=== PATIENT | female | born 1990 | race Caucasian/White ===

== ENCOUNTER 2017-08-28 10:17 | Emergency (ER) | payer OTHER ==
[2017-08-28 10:33] VITALS: O2SAT 100
--- NOTE | 2017-08-28 11:10 | C.PDOC ---
History Of Present Illness 27 year old female, A2, 5 miscarriages, denieshxof ectopic, presents to ED for evaluation of gradual development of vaginal spotting for the past 2 weeks. Patient notes that vaginal bleeding was heavier today, states she felt a gush of blood running down her legs which prompted ED visit. Pt reports associated diffuse lower abdominal pain. Otherwise, pt denies fever, chills, headache, dizziness, weakness, vomiting, diarrhea, back pain, dysuria, urinary frequency, vaginal discharge. Pt admits, "had initial OB visit 1 week ago when notified doctor about vaginal potting and was told its normal". Ambulate to Ed for evaluation, not in any apparent distress. Time Seen by Provider: 08/28/17 10:27 Chief Complaint (Nursing): Female Genitourinary History Per: Patient History/Exam Limitations: no limitations Onset/Duration Of Symptoms: Days (2 weeks) Current Symptoms Are (Timing): Still Present Quality Of Discomfort: "Pain" Associated Symptoms: denies: Fever, Chills, Vomiting, Diarrhea, Loss Of Appetite , Back Pain, Chest Pain, Constipation, Urinary Symptoms Alleviating Factors: None Recent travel outside of the [place]: No Additional History Per: Patient : 8 Para: 0 Miscarriage: 5 Past Medical History Reviewed: Historical Data, Nursing Documentation, Vital Signs Vital Signs: Last Vital Signs Temp 98.1 F 08/28/17 10:29 Pulse 90 08/28/17 10:29 Resp 16 08/28/17 10:29 BP 119/70 08/28/17 10:29 Pulse Ox 100 08/28/17 12:02 Surgical History: Tonsillectomy Family History: States: No Known Family Hx - Social History Hx Alcohol Use: No Hx Substance Use: No - Immunization History Hx Tetanus Toxoid Vaccination: No Hx Influenza Vaccination: No Hx Pneumococcal Vaccination: No Review Of Systems Except As Marked, All Systems Reviewed And Found Negative. Constitutional: Negative for: Fever, Chills Cardiovascular: Negative for: Chest Pain, Palpitations, Light Headedness Respiratory: Negative for: Cough, Shortness of Breath, Wheezing Gastrointestinal: Positive for: Abdominal Pain. Negative for: Nausea, Vomiting , Diarrhea, Constipation Genitourinary: Positive for: Vaginal Bleeding. Negative for: Dysuria, Frequency , Hematuria, Vaginal Discharge Musculoskeletal: Negative for: Back Pain Skin: Negative for: Rash, Bruising Neurological: Negative for: Headache, Dizziness Physical Exam - Physical Exam Appears: Well, Non-toxic, No Acute Distress Skin: Normal Color, Warm, Dry, No Rash Head: Normacephalic Eye(s): bilateral: PERRL Nose: Normal Oral Mucosa: Moist Throat: No Erythema Neck: Trachea Midline, Supple Chest: Symmetrical Cardiovascular: Rhythm Regular, No Murmur Respiratory: No Accessory Muscle Use, No Rales, No Rhonchi, No Wheezing Gastrointestinal/Abdominal: Soft, Tenderness (mild suprapubic), No Guarding, No Rebound Back: No CVA Tenderness Extremity: Normal ROM, No Pedal Edema, No Deformity, No Swelling Neurological/Psych: Oriented x3, Normal Speech, Normal Cognition ED Course And Treatment - Laboratory Results Result Diagrams: 08/28/17 11:10 O2 Sat by Pulse Oximetry: 100 (RA) Pulse Ox Interpretation: Normal Progress Note: Blood work, UA, transvaginal ultrasound ordered and reviewed. On re-eval, pt is afebrile, hemodynamicaly stable. NOn-toxic. AMbulatory in ED with stable gait. ENT: no acute findings. neck: SUpple, (-) JVD. Lungs: CTA B/L, BS equal B/L. ABd: benign, (-) guaridng, (-) rebound. Back: (-) CVA tenderness. US results review: 5w5d, appears small for age small sac with YS. FP seen in uterus. No FH. Beta quat 2974. Blood type: A positive. Pt has clinical findings c/w theratened . Pt advised and ref. to F/U with OB in 1-2 days for re-eavluation or return to ED in 2 days to repeat beta quant. Pt understand, stable for discharge now. Disposition Counseled Patient/Family Regarding: Diagnosis, Need For Followup - Disposition [facility] Disposition: HOME/ ROUTINE Disposition Time: 12:01 Condition: STABLE Additional Instructions: PELVIC REST FOR 1WEEK, AVOID SEXUAL ACTIVITY FOR 1 WEEK FOLLOW UP WITH OB IN 1-2 DAYS FOR RE-EVALUATION. IF UNABLE TO SEE YOUR OIL PROGRAM COMPLIANCE SPECIALIST, RETURN TO ED IN 2 DAYS TO REPEAT BETA QUANT ( ENZYMES) RETURN TO ED AT ANY TIME IF ANY WORSENING OR NEW CHANGES. Instructions: Threatened Miscarriage (ED) Forms: [employer] (Nicaraguan) - Clinical Impression Clinical Impression: Threatened - PA / [employer]URAL MAIL [employer]OR / Resident Statement MD/DO has reviewed & agrees with the documentation as recorded. - Scribe Statement The provider has reviewed the documentation as recorded by the Scribe Andrei Little All medical record entries made by the [facility] were at my direction and personally dictated by me. I have reviewed the chart and agree that the record accurately reflects my personal performance of the history, physical exam, medical decision making, and the department course for this patient. I have also personally directed, reviewed, and agree with the discharge instructions and disposition.
[2017-08-28 11:16] LABS: BASO % 0.5 % (0.0-2.0); EOS # 0.1 K/uL (0.0-0.7); EOS % 1.9 % (0.0-4.0); HEMATOCRIT 42.1 % (34.0-47.0); LYMPH # 1.4 K/uL (1.0-4.3); LYMPH % 28.8 % (20.0-40.0); MEAN CELL VOLUME 87.2 fL (81.0-99.0); MEAN CORPUSCULAR HEMOGLOBIN 29.4 pg (27.0-31.0); MEAN CORPUSCULAR HGB CONC 33.7 g/dL (33.0-37.0); MEAN PLATELET VOLUME 8.5 fL (7.2-11.7); MONO # 0.5 K/uL (0.0-0.8); MONO % 10.9 % (0.0-10.0); NRBC % 0.1 % (0.0-2.0); RED CELL DISTRIBUTION WIDTH 14.6 % (11.5-14.5)
[2017-08-28 12:31] VITALS: BP 121/81; PULSE 88; RESP 20; TEMP 98.6
--- NOTE | 2017-08-28 12:45 | US ---
PROCEDURE: OB Pelvic Ultrasound HISTORY: vaginal bleeding COMPARISON: None available. FINDINGS: UTERUS: Single Live intrauterine gestation. Yolk sac and pole are visualized. CRL equivalent to 0.20 cm corresponding to 5 weeks and 5 days of gestational age. Gestational sac diameter 0.62 cm. age (Ultrasound estimated): Date of delivery (Ultrasound estimated) : 04/25/2018 cardiac activity is not documented on the current examination. Mayela-gestational hemorrhage: None. Uterus measures 7.2 x 4.2 x 2.9 cm. No mass CERVIX: Long and closed. No cervical abnormality seen. RIGHT OVARY: Measures 2.9 x 2.7 x 2.7 cm. No mass. Normal flow. LEFT OVARY: Measures 2.4 x 1.4 x 2.2 cm. No mass. Normal flow. FREE FLUID: None. OTHER FINDINGS: None. IMPRESSION: Single intrauterine gestation with mean gestational age of 5 weeks and 5 days. Yolk sac and pole are visualized however no cardiac activity is documented on the current examination which may be related to early gestation. The estimated date of delivery by ultrasound is 04/25/2018. The ultrasound dates correspond with the clinical dates. Clinical correlation and follow-up is advised to confirm viability.
== END 2017-08-28 12:35 | disposition home or self-care (01) ==
LOC: C.ER 10:17
DX: O20.0 Threatened abortion (principal); Z3A.01 Less than 8 weeks gestation of pregnancy

== ENCOUNTER 2017-09-06 21:37 | Emergency (ER) | payer OTHER ==
[2017-09-06 21:54] VITALS: TEMP 97.5
[2017-09-06] MEDS ORDERED: Sodium Chloride 0.9% 1,000 ML IV ONE (23:06)
[2017-09-06 23:21] LABS: BASO % 0.2 % (0.0-2.0); EOS # 0.2 K/uL (0.0-0.7); EOS % 2.2 % (0.0-4.0); HEMOGLOBIN 14.3 g/dL (11.0-16.0); LYMPH % 26.9 % (20.0-40.0); MEAN CELL VOLUME 86.2 fL (81.0-99.0); MEAN CORPUSCULAR HEMOGLOBIN 29.3 pg (27.0-31.0); MEAN PLATELET VOLUME 9.3 fL (7.2-11.7); MONO # 0.6 K/uL (0.0-0.8); MONO % 8.4 % (0.0-10.0); NEUT # 4.7 K/uL (1.8-7.0); NEUT % 62.3 % (50.0-75.0); RBC 4.9 Mil/uL (3.80-5.20); RED CELL DISTRIBUTION WIDTH 14.3 % (11.5-14.5); WHITE BLOOD COUNT 7.6 K/uL (4.8-10.8)
[2017-09-06 23:27] LABS: HCG,QUALITATIVE URINE POSITIVE (NEGATIVE)
[2017-09-06 23:35] LABS: ALB/GLOB RATIO 1.1 (1.0-2.1); ALBUMIN 4.2 g/dL (3.5-5.0); ALT/SGPT 22 U/L (9-52); AST/SGOT 23 U/L (14-36); BLOOD UREA NITROGEN 16 mg/dL (7-17); GFR AFRICAN-AMERICAN > 60; GFR NON-AFRICAN AMERICAN > 60
[2017-09-06 23:38] LABS: SQUAMOUS EPITHIAL 1 /hpf (0-5); URINE BACTERIA RARE (<OCC); URINE BILIRUBIN NEGATIVE (NEGATIVE); URINE BLOOD 3+ (NEGATIVE); URINE CLARITY Hazy (Clear); URINE COLOR Yellow (YELLOW); URINE GLUCOSE (UA) NORMAL (Normal); URINE LEUKOCYTE ESTERASE NEG Leu/uL (Negative); URINE NITRATE NEGATIVE (NEGATIVE); URINE PROTEIN 1+ mg/dL (NEGATIVE); URINE UROBILINOGEN NORMAL mg/dL (0.2-1.0)
--- NOTE | 2017-09-07 00:36 | C.PDOC ---
Time Seen by Provider: 09/06/17 23:00 Chief Complaint (Nursing): Female Genitourinary History Per: Patient Onset/Duration Of Symptoms: Days Current Symptoms Are (Timing): Worse Severity: Moderate Location Of Pain/Discomfort: Suprapubic Quality Of Discomfort: Cramping Exacerbating Factors: None Alleviating Factors: None Additional History Per: Prior Records Abnormal Vaginal Bleeding: Yes Past Medical History Reviewed: Historical Data, Nursing Documentation, Vital Signs Vital Signs: Last Vital Signs Temp 97.5 F L 09/06/17 21:47 Pulse 70 09/06/17 23:46 Resp 16 09/06/17 23:46 BP 149/63 09/06/17 23:46 Pulse Ox 98 09/07/17 00:40 - Medical History PMH: No Chronic Diseases Other PMH: Pt is 6 weeks Surgical History: Tonsillectomy Family History: States: Unknown Family Hx - Social History Hx Tobacco Use: No Hx Alcohol Use: No Hx Substance Use: No - Immunization History Hx Tetanus Toxoid Vaccination: No Hx Influenza Vaccination: No Hx Pneumococcal Vaccination: No Review Of Systems Except As Marked, All Systems Reviewed And Found Negative. Constitutional: Negative for: Fever Cardiovascular: Negative for: Chest Pain Respiratory: Negative for: Shortness of Breath Gastrointestinal: Negative for: Vomiting Genitourinary: Positive for: Vaginal Bleeding, Pelvic Pain. Negative for: Dysuria Musculoskeletal: Positive for: Back Pain. Negative for: Neck Pain Skin: Negative for: Rash Neurological: Negative for: Weakness, Numbness Physical Exam - Physical Exam Appears: Non-toxic, No Acute Distress Skin: Normal Color, Warm, Dry, No Rash Head: Atraumatic, Normacephalic Eye(s): bilateral: PERRL, EOMI Neck: Normal ROM, Supple Cardiovascular: Rhythm Regular Respiratory: Normal Breath Sounds, No Accessory Muscle Use Gastrointestinal/Abdominal: Soft, Tenderness (suprapubic), No Guarding, No Rebound Back: No CVA Tenderness Extremity: Normal ROM Neurological/Psych: Oriented x3, Normal Motor, Normal Sensation ED Course And Treatment - Laboratory Results Result Diagrams: 09/06/17 23:18 09/06/17 23:18 Urine POC: Positive O2 Sat by Pulse Oximetry: 98 Pulse Ox Interpretation: Normal - Physician Consult Information Physician Contacted: Dominic Myers ([employer]) Outcome Of Conversation: She requested a pelvic US. Disposition - Disposition Disposition Time: 00:47 Condition: FAIR - Clinical Impression Clinical Impression: First trimester bleeding Physician Patient Turnover Patient Signed Over To: Sybil Craig Handoff Comments: to f/up Pelvic US.
[2017-09-07 01:41] VITALS: O2SAT 100
--- NOTE | 2017-09-07 01:43 | US ---
EXAM: US , Transvaginal CLINICAL HISTORY: 27 years old, female; Signs and symptoms; Lmp or gestational age (in weeks): 07/16/17; Antepartum complications; Bleeding; ; Additional info: Vaginal bleeding. TECHNIQUE: Real-time transvaginal obstetrical ultrasound of the maternal pelvis and a first trimester with image documentation. Transvaginal imaging was used for better evaluation of the fetus and adnexa. COMPARISON: US - PREG 1ST TRIMESTER/OB TV 2017-08-28 11:28 FINDINGS: Gestation: 0.6 x 0.4 x 0.6 cm gestational sac. No yolk sac. No pole. Uterus/cervix: Endometrium: 1.4 cm in thickness. Closed cervix. Probable nabothian cyst. Ovaries: Normal ovaries. No adnexal masses. Free fluid: No significant free fluid. IMPRESSION: 1. Gestational sac without pole or yolk sac. Findings compatible with blighted ovum/ demise.
[2017-09-07] MEDS ORDERED: Sodium Chloride 0.9% 1,000 ML IV ONE (01:54)
[2017-09-07 02:11] VITALS: BP 114/63; PULSE 99; RESP 22
== END 2017-09-07 02:35 | disposition home or self-care (01) ==
LOC: C.ER 21:37
DX: O02.0 Blighted ovum and nonhydatidiform mole (principal)
CPT/HCPCS: 76817; 80053; 81001; 84702; 84703; 85025; 99285; J7040